=== PATIENT | female | born 1995 | race Two or more races ===

== ENCOUNTER 2021-07-25 17:11 | Emergency (ER) | payer OTHER ==
[~2021-07-25] VITALS: Ht 157.5 cm; Wt 68.0 kg
[2021-07-25 17:30] VITALS: BP 106/62
--- NOTE | 2021-07-25 17:51 | PHYS DOC ---
Past Medical History Past Medical History: No Pertinent History Past Surgical History: No Surgical History Smoking Status: Never Smoker Alcohol Use: None Drug Use: None General Adult EDM: Chief Complaint: CHEST WALL PAIN HPI: HPI: Patient is a 26-year-old female that presents today with right chest wall pain. Patient states that yesterday evening about 530 she was bathing her daughter and reached over to bed the daughter in the shower and she felt a sharp pain in her right upper chest wall she said the pain wraps around her right side of her chest and near her scapula area. Pain is reproducible with palpation. Patient denies any other trauma, she denies shortness of air or fever as well. Patient states she has not taken any medications for the pain. Review of Systems: Review of Systems: Constitutional: Denies fever or chills. [] Eyes: Denies change in visual acuity. [] HENT: Denies nasal congestion or sore throat. [] Respiratory: Denies cough or shortness of breath. [] Cardiovascular: Denies chest pain or edema. [] GI: Denies abdominal pain, nausea, vomiting, bloody stools or diarrhea. [] : Denies dysuria. [] Musculoskeletal: Upper right chest wall pain Integument: Denies rash. [] Neurologic: Denies headache, focal weakness or sensory changes. [] Endocrine: Denies polyuria or polydipsia. [] Lymphatic: Denies swollen glands. [] Psychiatric: Denies depression or anxiety. [] Heart Score: C/O Chest Pain: No Risk Factors: Risk Factors: DM, Current or recent (<one month) smoker, HTN, HLP, family history of CAD, obesity. Risk Scores: Score 0 - 3: 2.5% MACE over next 6 weeks - Discharge Home Score 4 - 6: 20.3% MACE over next 6 weeks - Admit for Clinical Observation Score 7 - 10: 72.7% MACE over next 6 weeks - Early Invasive Strategies Physical Exam: PE: Constitutional: Well developed, well nourished, no acute distress, non-toxic appearance. [] HENT: Normocephalic, atraumatic, bilateral external ears normal, oropharynx moist, no oral exudates, nose normal. [] Eyes: PERRLA, EOMI, conjunctiva normal, no discharge. [] Neck: Normal range of motion, no tenderness, supple, no stridor. [] Cardiovascular:Heart rate regular rhythm, no murmur [] Lungs & Thorax: Bilateral breath sounds clear to auscultatioN, chest wall pain with palpation to the right upper chest area along with the right axillary area, no lacerations no abrasions, contusions, or ecchymosis noted. No crepitus or step-offs noted Abdomen: Bowel sounds normal, soft, no tenderness, no masses, no pulsatile masses. [] Skin: Warm, dry, no erythema, no rash. [] Back: No tenderness, no CVA tenderness. [] Extremities: No tenderness, no cyanosis, no clubbing, ROM intact, no edema. [] Neurologic: Alert and oriented X 3, normal motor function, normal sensory function, no focal deficits noted. [] Psychologic: Affect normal, judgement normal, mood normal. [] Current Patient Data: Vital Signs: Vital Signs Date Time Temp Pulse Resp B/P (MAP) Pulse Ox O2 Delivery O2 Flow Rate FiO2 07/25/21 17:30 98.2 68 16 106/62 (77) 100 Room Air 98.2 Vital Signs Date Time Temp Pulse Resp B/P (MAP) Pulse Ox O2 Delivery O2 Flow Rate FiO2 07/25/21 17:30 98.2 68 16 106/62 (77) 100 Room Air 98.2 EKG: EKG: [] Radiology/Procedures: Radiology/Procedures: REASON: CHEST WALL PAIN PROCEDURE: RIBS RIGHT AND PA CHEST EXAMINATION: XR RIBS MIN 3 VIEWS RT W/PA CHEST CLINICAL HISTORY: Chest wall pain. EXAM DATE/TIME: 07/25/2021 5:59 PM COMPARISON: None FINDINGS: Lines, Tubes, and Devices: None. Cardiomediastinal Silhouette: Within normal limits. Lungs and Pleura: No evidence of focal airspace consolidation, pleural effusion, or pneumothorax. Bones and Soft Tissues: No acute osseous abnormality. IMPRESSION: No evidence of acute right rib fracture or acute cardiopulmonary abnormality. Electronically signed by: Sameer Rushing DO (07/25/2021 6:58 PM) [facility] Course & Med Decision Making: Course & Med Decision Making Pertinent Labs and Imaging studies reviewed. (See chart for details) 1900 reviewed radiological results with patient informed her there is no acute process noted on the x-ray. Patient states her pain has improved with the use of Motrin, did inform her to ice the affected area 20 minutes on 3-4 times daily take Motrin every 6 hours for the next 4 to 5 days and then as needed and to follow-up with her primary care physician if the pain is not resolved in 5 to 7 days. Strict precautions for return were given to the patient. Patient and family number at the bedside did verbalize understanding of that. Dragon Disclaimer: Dragon Disclaimer: This electronic medical record was generated, in whole or in part, using a voice recognition dictation system. Departure Departure Impression: Primary Impression: Costochondritis Additional Impression: Strain of chest wall Qualified Codes: S29.011A - Strain of muscle and tendon of front wall of thorax, initial encounter Disposition: HOME / SELF CARE / HOMELESS Condition: STABLE Referrals: AMINA HOBBS MD (PCP) Patient Instructions: Chest Wall Pain, Costochondritis Additional Instructions: Motrin 600 mg take 1 tablet every 6 hours for the next 5 days then as needed for pain, may cause stomach upset take with food Ice to the affected area 20 minutes on 3-4 times daily to help with localized swelling and pain Follow-up with your primary care physician in 5 to 7 days if your pain is not improved Return to the emergency department for increased shortness of breath, chest pains is not relieved by the Motrin, nausea vomiting when you are unable to take any fluids, or development of a fever. Scripts Ibuprofen (IBUPROFEN) 600 Mg Tablet 600 MG PO PRN Q6HRS PRN for INFLAMMATION, #30 TAB Prov: LEMUEL SIMPSON SOLUTION DESIGNER 07/25/21 LEMUEL SIMPSON APRN Jul 25, 2021 17:51
[2021-07-25] MEDS ORDERED: IBUPROFEN 200 MG TABLET. PO ONE (18:00)
--- NOTE | 2021-07-25 19:01 | RAD ---
EXAMINATION: XR RIBS MIN 3 VIEWS RT W/PA CHEST CLINICAL HISTORY: Chest wall pain. EXAM DATE/TIME: 07/25/2021 5:59 PM COMPARISON: None FINDINGS: Lines, Tubes, and Devices: None. Cardiomediastinal Silhouette: Within normal limits. Lungs and Pleura: No evidence of focal airspace consolidation, pleural effusion, or pneumothorax. Bones and Soft Tissues: No acute osseous abnormality. IMPRESSION: No evidence of acute right rib fracture or acute cardiopulmonary abnormality. Electronically signed by: Sameer Rushing DO (07/25/2021 6:58 PM) [facility]
[2021-07-25] MEDS ORDERED: IBUP-1007 PO (19:10)
--- NOTE | 2021-07-27 08:23 | EKG ---
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
== END 2021-07-25 19:35 | disposition home or self-care (01) ==
LOC: ER 17:11
DX: S29.011A Strain of muscle and tendon of front wall of thorax, initial encounter (principal); M94.0 Chondrocostal junction syndrome [Tietze]; X50.9XXA Other and unspecified overexertion or strenuous movements or postures, initial encounter; Y93.89 Activity, other specified; Y92.89 Other specified places as the place of occurrence of the external cause; Y99.8 Other external cause status
CPT/HCPCS: 71101; 93005; 99283

== ENCOUNTER 2021-10-06 23:18 | Emergency (ER) | payer OTHER ==
[~2021-10-06] VITALS: Ht 157.5 cm; Wt 66.9 kg
[~2021-10-06 23:18] MED LIST: IBUP-1007 PO
[2021-10-07] MEDS ORDERED: KETOROLAC 15 MG/ML VIAL. IVP ONE (00:30)
[2021-10-07 01:03] LABS: BASO % 1 % (0-3); EOS # 0.1 x10^3/uL (0.0-0.7); EOS % 1 % (0-3); HEMATOCRIT 37.6 % (36.0-47.0); HEMOGLOBIN 12.9 g/dL (12.0-15.5); LYMPH # 2.1 x10^3/uL (1.0-4.8); LYMPH % 29 % (24-48); MEAN CORPUSCULAR HEMOGLOBIN 30 pg (25-35); MEAN CORPUSCULAR HGB CONC 34 g/dL (31-37); MEAN CORPUSCULAR VOLUME 87 fL (79-100); MONO # 0.8 x10^3/uL (0.0-1.1); MONO % 11 % (0-9); NEUT # 4.3 x10^3/uL (1.8-7.7); NEUT % 58 % (31-73); PLATELET COUNT 228 x10^3/uL (140-400); RED BLOOD COUNT 4.33 x10^6/uL (3.50-5.40); RED CELL DISTRIBUTION WIDTH 13.6 % (11.5-14.5); WHITE BLOOD COUNT 7.4 x10^3/uL (4.0-11.0)
[2021-10-07 01:13] LABS: CALCIUM 9.3 mg/dL (8.5-10.1); CREATININE 0.8 mg/dL (0.6-1.0); GFR 86.7; POTASSIUM 3.8 mmol/L (3.5-5.1)
--- NOTE | 2021-10-07 01:53 | RAD ---
XR CHEST 2V Technique: PA and lateral views of the chest were obtained. Clinical History: Reason: sharp, mid sternal chest pain today / Spl. Instructions: / History: Comparison: None. Findings: The heart and pulmonary vasculature appear within normal limits. The lungs are clear. The pleural ma rgins are clear. Impression: No acute chest process is seen. Electronically signed by: Gunnar Webb III, MD (10/07/2021 1:50 AM) [facility]
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
[2021-10-07 02:52] VITALS: BP 100/62
--- NOTE | 2021-10-10 10:24 | EKG ---
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
== END 2021-10-07 02:52 | disposition home or self-care (01) ==
LOC: ER 23:18
DX: R07.2 Precordial pain (principal)
CPT/HCPCS: 36415; 71046; 80048; 84484; 85025; 93005; 96374; 99285; J1885